=== PATIENT | female | born 1975 | race Two or more races ===

== ENCOUNTER 2024-01-09 14:18 | Emergency (ER) | payer OTHER ==
[2024-01-09 14:24] VITALS: TEMP 98.3; BMI 21.9
[2024-01-09] MEDS: SODIUM CHLORIDE 1,000 ML IV SCH (14:51)
[2024-01-09] MEDS ORDERED: ALPRAZolam 0.25 MG TABLET ONE (14:55)
[2024-01-09] MEDS: ALPRAZolam 1 MG TABLET PO ONE (14:58)
[2024-01-09 15:45] VITALS: BP 106/60; PULSE 66; RESP 17
== END 2024-01-09 16:28 | disposition home or self-care (01) ==
LOC: JER 14:18
DX: R42 Dizziness and giddiness (principal); R55 Syncope and collapse; R06.4 Hyperventilation; R20.2 Paresthesia of skin
CPT/HCPCS: 70450-TC; 82962; 93005; 93010; 99284-25